=== PATIENT | male | born 1935 | race African-American/Black ===

== ENCOUNTER → 2018-05-02 | Outpatient (CLI) | payer MEDICARE, BC ==
--- NOTE | 2018-05-02 13:27 | RAD ---
PQRS Compliance statement: One or more of the following individualized dose reduction techniques were utilized for this examination: 1. Automated exposure control. 2. Adjustment of the mA and/or kV according to patient size. 3. Use of iterative reconstruction technique. Indication:HEMATURIA TECHNIQUE: CT abdomen and pelvis without IV contrast with multiplanar reformats. COMPARISON: None FINDINGS: Limited evaluation of solid abdominal and pelvic organs due to lack of IV contrast. Heart is normal in size. No pericardial or pleural effusion. Mild bibasilar scarring. 8mm low attenuating lesion is seen in the a medially (series 2 image 20). Otherwise, noncontrast appearance of the liver, spleen, gallbladder, pancreas, adrenals within normal limits. Punctate bilateral nonobstructing renal stones. No attenuating lesions are seen in the bilateral kidneys demonstrating fluid density most likely simple cysts. No enlarged retroperitoneal or pelvic adenopathy. No free pelvic fluid or ascites. Sigmoid diverticulosis. No bowel obstruction. Large amount of stool is seen in the colon. Normal appendix. Urinary bladder demonstrates circumferential wall thickening without radiopaque stones. Prostate is enlarged measuring 6.5 x 6.3 x 8.0 cm with periprostatic stranding densities. No suspicious bony lesion. There is a intraluminal fat density nodule in the IVC at the cavoatrial junction (series 2 image 12). IMPRESSION: Limited evaluation of solid abdominal and pelvic organs due to lack of IV contrast. 1. Bilateral nonobstructing renal stones. 2. Significantly enlarged prostate with periprostatic inflammation. Differential diagnoses includes prostatitis or prostatic malignancy. Clinically correlate with PSA and physical exam. 3. Indeterminate right lobe lesion most likely cystic biliary hamartoma or hemangioma. 4. Intraluminal fat density/low attenuating nodule may suggest a mural lipoma or a small thrombus. Electronically signed by: Luisito Bernal DO (05/02/2018 1:24 PM) [id number]
== END | disposition home or self-care (01) ==
LOC: CT 10:41
PROVIDERS: ATTEND Family Medicine
DX: N40.0 Benign prostatic hyperplasia without lower urinary tract symptoms (principal); N20.0 Calculus of kidney; K57.30 Diverticulosis of large intestine without perforation or abscess without bleeding; N42.89 Other specified disorders of prostate; I10 Essential (primary) hypertension
CPT/HCPCS: 74176

== ENCOUNTER → 2018-06-06 | Outpatient (CLI) | payer MEDICARE, BC ==
--- NOTE | 2018-06-06 18:10 | RAD ---
RENAL COMPLETE BILATERAL History: Stage III chronic kidney disease Comparison: None. Findings: Multiple sonographic images of the kidneys and urinary bladder are submitted. Right kidney measured 10.2 x 5.1 x 5 cm. Left kidney measured 10.7 x 5.3 x 5 cm. There are 2 hypoechoic foci of the right kidney with the largest up to 1.2 cm. There are internal echoes of the more inferior smaller focus although increased through transmission. There is also hypoechoic lesion of the left kidney about 1.5 cm greatest dimension in the renal pelvis. There is no hydronephrosis of either kidney. Patient voided to near completion, estimated postvoid residual of 8 to 9 cc. Impression: 1. There is no hydronephrosis of either kidney. There are bilateral renal cysts. Electronically signed by: Flavio Jett MD (06/06/2018 6:07 PM) [id number]
== END | disposition home or self-care (01) ==
LOC: US 08:29
PROVIDERS: ATTEND Family Medicine
DX: I12.9 Hypertensive chronic kidney disease with stage 1 through stage 4 chronic kidney disease, or unspecified chronic kidney disease (principal); N18.3 Chronic kidney disease, stage 3 (moderate); N28.1 Cyst of kidney, acquired
CPT/HCPCS: 76770

== ENCOUNTER → 2019-08-14 | Outpatient (CLI) | payer MEDICARE, BC ==
--- NOTE | 2019-08-14 16:17 | RAD ---
3 view study of the toes of the left foot Clinical indications: Second toe pain and infected nail FINDINGS: There is osteolysis of the second distal phalanx. No soft tissue air is evident. No acute fracture or dislocation is seen. 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 IMPRESSION: Osteomyelitis of the second distal phalanx. Electronically signed by: All Milner MD (08/14/2019 4:14 PM) [facility] [place]
== END | disposition home or self-care (01) ==
LOC: DXRAD 11:46
PROVIDERS: ATTEND Family Medicine
DX: M86.8X7 Other osteomyelitis, ankle and foot (principal); M19.072 Primary osteoarthritis, left ankle and foot
CPT/HCPCS: 73660

== ENCOUNTER → 2021-09-22 | Outpatient (CLI) | payer MEDICARE, BC ==
[2021-09-21 08:16] VITALS: BP_SYST 131
[2021-09-21 20:15] VITALS: BP_DIAS 67
[~2021-09-22] MED LIST: ACET500T68 PO; ALEN70TA71 PO; AMLO-187 PO; ASPI325T8 PO; ATOR20TA58 PO; ATOR40TA59 PO; CHLO25TA9 PO; CHOL100013 PO; GABA300C8 PO; LOSA100T14 PO; METO50TA29 PO; MULT-658 PO; OMEG-152 PO; TAMS0.4C97 PO; TERA2CAP3 PO; TUMERIC PO
--- NOTE | 2021-09-24 10:43 | RAD ---
NM THREE PHASE BONE SCAN Clinical Indication: Reason: Left great toe pain, swelling x2 years. Comparison: Left ankle, 3 views 08/14/2019. TECHNIQUE: Patient is injected with 23 mCi of technetium 99m MDP. Angiographic phase images of the fe et acquired. Immediate static planar image acquired. After 3 hour delay plantar, right and left later al static images obtained. Findings: Contamination superior to the right foot is noted on the angiographic and immediate static images. On angiographic phase images there is hyperemia of the left great toe. There is persistent increased tracer uptake of the great toe on the immediate static (blood pool) lobito ges. There is increased tracer uptake of the left great toe on the delay images. IMPRESSION: There is increased tracer uptake localizing to the left great toe on all 3 phases of the bone scan. C onsiderations include osteomyelitis, fracture, or osteonecrosis. Consider correlation with radiograph s. Electronically signed by: Nixon Palma MD (09/24/2021 10:41 AM) [id number]
== END ==
LOC: NM 08:37
PROVIDERS: ATTEND Family Medicine
DX: L03.032 Cellulitis of left toe (principal)
CPT/HCPCS: 78315; A9503

== ENCOUNTER → 2021-10-05 | Outpatient (CLI) | payer MEDICARE, BC ==
[2021-09-22 14:10] VITALS: BP 126/60
--- NOTE | 2021-10-05 11:43 | RAD ---
EXAM: XR FOOT_LEFT 3 VIEWS 10/05/2021 9:53 AM CLINICAL INDICATION: Left foot pain, first digit COMPARISON: None TECHNIQUE: AP, oblique, and lateral views of the left foot FINDINGS: There is a subacute or old fracture of the great toe distal phalanx. This appears mildly c omminuted and likely extending to the IP joint. Alignment is normal. There is mild joint space narrow ing at the great toe MTP joint with small osteophytes and subchondral cysts. Mild diffuse soft tissue swelling of the great toe. IMPRESSION: 1. Subacute or old fracture of the great toe distal phalanx. 2. 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 3. Diffuse soft tissue swelling of the great toe. Electronically signed by: Lanny Power MD (10/05/2021 11:41 AM) [id number]
== END ==
LOC: RAD 09:46
PROVIDERS: ATTEND Podiatrist
DX: M19.072 Primary osteoarthritis, left ankle and foot (principal); M25.775 Osteophyte, left foot; M79.89 Other specified soft tissue disorders
CPT/HCPCS: 73630

== ENCOUNTER → 2021-10-30 | Outpatient (CLI) | payer MEDICARE, BC ==
[2021-09-22 14:10] VITALS: BP 126/60
--- NOTE | 2021-10-30 14:38 | RAD ---
Exam: XR FOOT_LEFT 3 VIEWS History: Status post surgery. Comparison: 10/05/2021 Findings: Osseous mineralization is normal. No acute fracture or dislocaton. Postsurgical changes from great to e amputation at the base of the proximal phalanx. Surrounding soft tissue swelling. Third toe distal phalanx amputation. No aggressive osseous erosive process. Second through fifth hammertoe deformities . Pes planus. Plantar calcaneal enthesophyte. Advanced degenerative changes of the tibiotalar joint. Atherosclerotic vascular calcifications. Impression: 1. Postsurgical changes from a dictation of the first and third ray. No acute osseous abnormality. Electronically signed by: Mario Estes MD (10/30/2021 2:36 PM) [id number]
== END ==
LOC: RAD 13:41
PROVIDERS: ATTEND Podiatrist
DX: M19.072 Primary osteoarthritis, left ankle and foot (principal); M77.32 Calcaneal spur, left foot; M20.42 Other hammer toe(s) (acquired), left foot; M21.42 Flat foot [pes planus] (acquired), left foot; M79.89 Other specified soft tissue disorders
CPT/HCPCS: 73630